=== PATIENT | male | born 1975 | race Caucasian/White ===

== ENCOUNTER 2019-08-18 09:04 | Outpatient (CLI) | payer MEDICARE, MEDICAID, SELFPAY ==
--- NOTE | 2019-08-18 | US_ITS ---
WS: [id number] Right Lower extremity venous Doppler, 08/18/2019 Clinical Data: PAIN OF RIGHT LOWER EXTREMITY Comparison: None. Findings: The veins of the right lower extremity were examined. The veins examined where the posterior tibial vein, popliteal vein, superficial femoral vein, common femoral vein and greater saphenous vein. There was normal venous flow throughout. There is no evidence of deep venous thrombosis or obstructio n. Normal augmentation and compression occurred. The greater saphenous vein demonstrated venous throm bosis from the common femoral vein junction to several inches past the knee. The remainder the vessel s did not show any thrombosis. US/ROR venous duplex LE RT Impression: Negative right lower extremity venous Doppler ultrasound. Thrombosis of the right greater saphenous vein from its junction with the super ior femoral vein down to the leg.
== END 2019-08-18 09:05 | disposition home or self-care (01) ==
LOC: RADOUTREAD 11:42
PROVIDERS: Family Provider Family Medicine; Visit Provider Nurse Practitioner Family
DX: Z76.89 Persons encountering health services in other specified circumstances (principal)